=== PATIENT | male | born 1995 | race African-American/Black ===

== ENCOUNTER 2016-06-14 10:22 | Emergency (ER) | payer BC ==
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
== END 2016-06-14 11:10 | disposition home or self-care (01) ==
LOC: ER 10:22
DX: S61.212A Laceration without foreign body of right middle finger without damage to nail, initial encounter (principal); F17.210 Nicotine dependence, cigarettes, uncomplicated; Y04.0XXA Assault by unarmed brawl or fight, initial encounter; Y92.009 Unspecified place in unspecified non-institutional (private) residence as the place of occurrence of the external cause